=== PATIENT | male | born 2000 | race Caucasian/White ===

== ENCOUNTER 2021-03-05 21:20 | Emergency (ER) | payer OTHER ==
[~2021-03-05] VITALS: Ht 180.3 cm; Wt 145.0 kg
[2021-03-05 21:35] VITALS: BP 144/107
--- NOTE | 2021-03-05 22:11 | NUR ---
ERP at bedside
--- NOTE | 2021-03-05 22:49 | NUR ---
pt now asking for pain med, ERP aware. awaiting orders
[2021-03-05] MEDS ORDERED: HYDR-3965 PO (22:54)
[2021-03-05] MEDS ORDERED: ketorolac trometh inj. 60 MG/2 ML VIAL IM ONE (22:55)
[2021-03-05] MEDS ORDERED: traMADol 50MG tablet PO ONE (22:55)
--- NOTE | 2021-03-05 23:54 | NUR ---
orthopedics pediatric physician at bedside to apply splints.
--- NOTE | 2021-03-06 00:12 | NUR ---
unable to collect last set of VS due to bilateral splints. pt leaves with mother in NAD to home.
== END 2021-03-06 00:12 | disposition home or self-care (01) ==
LOC: ER 21:21
DX: S52.122A Displaced fracture of head of left radius, initial encounter for closed fracture (principal); S52.121A Displaced fracture of head of right radius, initial encounter for closed fracture; W18.39XA Other fall on same level, initial encounter; Y93.89 Activity, other specified; Y92.89 Other specified places as the place of occurrence of the external cause; Y99.8 Other external cause status
CPT/HCPCS: 29105; 73080; 96372; 99283; J1885